=== PATIENT | female | born 1955 | race Caucasian/White ===

== ENCOUNTER 2024-07-26 13:52 | Day surgery (SDC) | payer MEDICARE, OTHER ==
[2024-07-26] MEDS ORDERED: Decadron 4 MG INJ IV ONE (13:53)
[2024-07-26] MEDS ORDERED: LIDOCAINE HCL 1% 50 MG/5 ML VL PF IJ ONE (13:53)
[2024-07-26] MEDS ORDERED: Lactated Ringers 1,000 ML IV ONE (14:38)
[2024-07-26] MEDS ORDERED: DIPRIVAN 200 MG/20 ML IV ONE (15:05)
[2024-07-26] MEDS ORDERED: Xylocaine-Mpf 2% 5 Ml Vial ONE (15:07)
--- NOTE | 2024-07-26 17:42 | XRAY ---
14 seconds of fluoroscopy was used in surgery for a right piriformis injection.
--- NOTE | 2024-07-26 17:42 | XRAY ---
Indication: Right piriformis injection. Intraoperative fluoroscopy provided for 14 seconds. Single digital spot image submitted for interpretation demonstrates posterior needle tip projecting over the right piriformis. Small amount of contrast injected for needle tip placement. Correlate with intraoperative findings/report.
== END 2024-07-26 15:33 | disposition home or self-care (01) ==
LOC: SDC-PAIN 13:52
PROVIDERS: ATTEND Psychiatry & Neurology Pain Medicine
DX: M79.18 Myalgia, other site (principal)
CPT/HCPCS: 20552; 72170; 77002; J1100; J2001; J2704; Q9966